=== PATIENT | female | born 1995 | race Two or more races ===

== ENCOUNTER → 2022-06-25 13:05 | Outpatient (BNVA) | payer OTHER, SELFPAY | PROVIDERS: PCP Pediatrics; Visit Provider Physician Assistant Surgical ==

== ENCOUNTER → 2022-07-03 08:22 | Outpatient (BNVA) | payer OTHER, SELFPAY | PROVIDERS: PCP Pediatrics; Visit Provider Surgery ==

== ENCOUNTER 2022-07-15 14:50 | Outpatient (REF) | payer OTHER, SELFPAY ==
[2022-07-16 16:13] LABS: H Pylori Breath Test Negative (Negative)
== END 2022-07-15 14:51 | disposition home or self-care (01) ==
LOC: HO.LNP 14:50
PROVIDERS: Surgery; PCP Pediatrics; Visit Provider Physician Assistant Surgical
DX: E66.01 Morbid (severe) obesity due to excess calories (principal)
CPT/HCPCS: 83013; 99211

== ENCOUNTER 2022-07-17 14:29 | Outpatient (REF) | payer OTHER, SELFPAY ==
--- NOTE | ~2022-07-17 | XR_ITS ---
EXAMINATION: XR CHEST CLINICAL INFORMATION: Obesity COMPARISON: None available. TECHNIQUE: 2 views of the chest were obtained. FINDINGS: No significant abnormality is noted involving the heart, lungs, mediastinum, bony thorax or soft tissues. XR/XR chest 2V IMPRESSION: Unremarkable examination.
--- NOTE | 2022-07-17 14:40 | ECG_ITS ---
Test Reason : OBESITY Blood Pressure : / mmHG Vent. Rate : 062 BPM Atrial Rate : 062 BPM P-R Int : 178 ms QRS Dur : 086 ms QT Int : 446 ms P-R-T Axes : 044 046 036 degrees QTc Int : 452 ms Normal sinus rhythm Normal ECG No previous ECGs available Referred By: Giancarlo Amador Electronically Signed By:Giovanni Valles
== END 2022-07-17 14:30 | disposition home or self-care (01) ==
LOC: HO.XRAY 14:29
PROVIDERS: Visit Provider Surgery
DX: E66.01 Morbid (severe) obesity due to excess calories (principal)
CPT/HCPCS: 71046; 93005

== ENCOUNTER 2022-07-18 10:05 | Outpatient (REF) | payer OTHER, SELFPAY ==
[2022-07-18 10:54] LABS: Basophils Percent Auto 0.6 % (0-2); Eosinophils Absolute Auto 0.1 X10*3/uL (0.0-0.4); Eosinophils Percent Auto 0.9 % (0-4); Hematocrit 38.6 % (37.0-47.0); Hemoglobin 12.8 g/dl (12.0-16.0); Imm Gran Abs Auto 0.01 X10*3/uL (0.00-0.03); Imm Gran Pct Auto 0.1 % (0.0-0.4); Lymphocytes Absolute Auto 2.1 X10*3/uL (1.2-4.9); Lymphocytes Percent Auto 29.3 % (20-40); MANUAL DIFF FLAG SCAN; Mean Corpuscular HGB Conc 33.2 g/dl (31.0-35.0); Mean Corpuscular Hemoglobin 29.4 pg (27.0-33.0); Mean Corpuscular Volume 88.7 fL (80.0-98.0); Monocytes Absolute Auto 0.5 X10*3/uL (0.1-1.2); Monocytes Percent Auto 7.2 % (2-11); Neutrophils Absolute Auto 4.3 x10*3/uL (2.0-8.3); Neutrophils Percent Auto 61.9 % (45-73); PLT CLUMP 1; Red Blood Count 4.35 X10*6/uL (4.20-5.50); Red Cell Distribution Width 13.3 % (11.0-16.0); SCAN SMEAR FLAG 1
[2022-07-18 11:10] LABS: Estimated Average Glucose 103 mg/dL; Hemoglobin A1c % 5.2 %
[2022-07-18 11:24] LABS: Platelet Count 223 X10*3/uL (160-400); SLIDE REVIEW VERIFIED
[2022-07-18 12:13] LABS: Alanine Aminotransferase 17 U/L (0-31); Alkaline Phosphatase 49 U/L (39-117); Anion Gap 14 (12-20); Aspartate Amino Transferase 15 U/L (5-31); Bilirubin Total 0.6 mg/dL (0.0-1.0); Blood Urea Nitrogen 7 mg/dL (9-16); C Reactive Protein < 0.10 mg/dL (< or = 0.50); Calcium 9.6 mg/dL (8.4-10.2); Carbon Dioxide 23 mmol/L (22-29); Chloride 109 mmol/L (96-108); Cholesterol 143 mg/dL; Estimated Glomerular Filt Rate > 60; Ferritin 50 ng/mL (10-122); Folate 12.9 ng/mL (> or = 4.0); Glucose Random 95 mg/dL (60-115); HDL Cholesterol 36 mg/dL; Iron 80 mcg/dL (30-160); LDL Cholesterol Calculated 95 mg/dl; Percent Iron Saturation 22 % (15-50); Potassium 4.1 mmol/L (3.3-5.1); Sodium 142 mmol/L (135-145); TSH reflex Free T4 0.54 uIU/mL (0.32-4.0); Total Iron Binding Capacity 358 mcg/dL (228-428); Total Protein 7.2 g/dL (6.5-8.0); Triglycerides 64 mg/dL; Unsaturated Iron Binding 278 ug/dL; Vitamin B12 775 pg/mL (200-900); Vitamin D 25-OH Total 34.6 ng/mL (>30)
[2022-07-18 12:56] LABS: Insulin 18 uU/mL (2-29)
[2022-07-21 12:39] LABS: Calcium (PTHI) 9.4 mg/dL (8.6-10.2); PTHI 24 pg/mL (16-77)
[2022-07-22 13:13] LABS: Zinc 67 mcg/dL (60-130)
[2022-07-23 10:34] LABS: Vitamin A 41 mcg/dL (38-98)
[2022-07-25 11:19] LABS: Vitamin B1 11 nmol/L (8-30)
== END 2022-07-18 10:06 | disposition home or self-care (01) ==
LOC: HO.LAB 10:05
PROVIDERS: Visit Provider Surgery
DX: E66.01 Morbid (severe) obesity due to excess calories (principal)
CPT/HCPCS: 36415; 80053; 80061; 82306; 82607; 82728; 82746; 83036; 83525; 83540; 83970; 84425; 84443; 84590; 84630; 85025; 86140

== ENCOUNTER → 2022-07-28 14:39 | Outpatient (BNVA) | payer OTHER, SELFPAY | PROVIDERS: Visit Provider Counselor Mental Health ==

== ENCOUNTER 2022-08-25 15:45 | Outpatient (AMB) | payer OTHER, SELFPAY ==
--- NOTE | 2022-08-25 15:29 | A.OFFVIS_ITS ---
Intake VS Expanded 08/25/22 15:47 Height 5 ft 6 in Weight 243 lb BMI 39.2 Intake Visit Reasons: VIDEO Initial Nutrition SWL Allergies No Known Allergies Allergy (Verified 07/03/22 11:11) HPI Nutrition Presentation Details lost 7# before coming to our program [employer] weight 254# Current weight 243# Reason for consult elevated BMI Diet Assmnt Details pt reports she is doing well with her nutrition plan. has made a lot of progress. She notes the beginning was very challenging but has now adjusted well. 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 She shares her biggest fear is failure and not completing the process. Speaks about how much her sister is her motivator. SWL online classes: completed. reviewed Previous weight loss methods attempted tried to lose weight on her own, and her 2 older sisters Dietary counseling reduction Meal frequency regular: lunch, dinner (rice, beans, chicken ) and snacks and irregular: breakfast (skipped ) Lifestyle Eating out 4 or more times/week Food frequency Dairy: daily (drank milk with all meals and through the day ), Fruit: daily, Vegetables: never, Meats/poultry/fish (protein): daily (beef, chicken , doesnt like sefood), Water: occasionally, Soda: never and Juice: never Diagnosis Nutrition problem #1 overweight/obesity As related to (etiology) #1 excess energy intake and physical inactivity As evidenced by (sign/symptom) #1 high BMI Monitoring/Goals Nutrition problem monitoring total energy intake, level of knowledge/skill, total PRO intake, total CHO intake and weight Outcome progress progressing Learning/Education Readiness to learn good Stages of change action Educational materials provided Yes Most Recent Diabetes Results: Cholesterol 143 mg/dL 07/18/22 HDL Cholesterol 36 mg/dL 07/18/22 Triglycerides 64 mg/dL 07/18/22 Creatinine 0.74 mg/dL (0.5-1.4) 07/18/22 Blood Urea Nitrogen 7 mg/dL (9-16) L 07/18/22 Sodium 142 mmol/L (135-145) 07/18/22 Potassium 4.1 mmol/L (3.3-5.1) 07/18/22 Chloride 109 mmol/L (96-108) H 07/18/22 Carbon Dioxide 23 mmol/L (22-29) 07/18/22 Calcium 9.6 mg/dL (8.4-10.2) 07/18/22 AST 15 U/L (5-31) 07/18/22 ALT 17 U/L (0-31) 07/18/22 Total Protein 7.2 g/dL (6.5-8.0) 07/18/22 Albumin 4.0 g/dL (3.5-5.0) 07/18/22 PFSH Medical History (Updated 07/28/22 @ 14:58 by Maribeth De La Cruz) Morbid obesity Surgical History (Updated 06/25/22 @ 13:23 by Tori Nicolas [facility]) No history of previous surgery Family History (Updated 06/25/22 @ 13:25 by Tori Nicolas CMA) Mother Diabetes Asthma Father Diabetes Cancer Sister No problems noted. Sister No problems noted. Son Seasonal allergies Eczema Daughter Seasonal allergies Eczema Palsy Social History (Updated 06/25/22 @ 13:23 by Tori Nicolas CMA) Alcohol intake: current Alcohol intake frequency: holidays/special occasions only Patient Tobacco Use Status: Never used Tobacco Assessment & Plan Assessment & Plan (1) Obesity (BMI 30-39.9): Code(s): E66.9 - Obesity, unspecified Patient Instructions: Patient is cleared from a nutrition standpoint for bariatric surgery. Educational requirements have been completed. Reviewed vitamin supplementation and commitment to protein shake for several months post surgery. Encouraged communication with office as needed Telehealth Telehealth Location of provider rendering services: practice address Location of patient: address on file Patient Identification confirmed using: Name, : Yes Telehealth method: voice only Patient verbally consented to treatment: Yes Patient verbally consented to billing insurance company: Yes Patient informed of any privacy concerns related to visit: Yes Minutes spent on Phone/Video with Pt.: 30 Coding Level of Care Code Nutr Indiv Intake (18263) Diagnoses Obesity (BMI 30-39.9) E66.9 Time Spent (min) 30
[2022-08-25 15:47] VITALS: BMI 39.2
== END 2022-08-25 15:53 | disposition home or self-care (01) ==
LOC: HO.HBS 15:52
PROVIDERS: Visit Provider Dietitian, Registered
DX: E66.9 Obesity, unspecified (principal)

== ENCOUNTER → 2022-08-25 15:45 | Outpatient (BNVA) | payer OTHER, SELFPAY | PROVIDERS: Visit Provider Dietitian, Registered | DX: E66.9 Obesity, unspecified (principal); Z68.39 Body mass index [BMI] 39.0-39.9, adult | CPT/HCPCS: 97802 ==

== ENCOUNTER 2022-08-27 16:00 | Outpatient (AMB) | payer OTHER, SELFPAY ==
--- NOTE | 2022-08-27 16:01 | MHC.OFFVISWM ---
Intake VS Expanded 08/27/22 16:05 Height 5 ft 6 in Weight 243 lb 6.4 oz BMI 39.3 Intake Visit Reasons: VIDEO F/U [facility] Circulation Manager Required: No Allergies No Known Allergies Allergy (Verified 07/03/22 11:11) Medication List - Last Reconciled 08/27/22 by RAZA Ramos No Known Home Meds HPI HPI Comments History of Present Illness Details 27 yo female returns to the [facility] clinic for pre-op planning Initial weight on 07/03/22 was 254.4 with a BMI of 41 Weight today is 243.4 with a BMI of 39.3 Weight loss 12 pounds or 4.7 % TBWL She states she is doing very well, she has improved energy. SHe is having 4 forks of rice 1-2 x per week. Meal plan: 2 plant-based organic ORGAIN protein shakes (ONE scoop EACH in 8oz low fat unsweetened almond milk each) at 4am-6am and 7am-9am, 3 protein bars (Zone Perfect protein bars) at 10am-12pm, 1pm-3pm and 4pm-6pm and? dinner at 7pm (8 forks of protein and 8 forks of salad/vegetables). exercise plan: 5 x per week 4 mile walk, 45 minutes, [facility] Medical History Morbid obesity Surgical History No history of previous surgery Family History Mother Diabetes Asthma Father Diabetes Cancer Sister No problems noted. Sister No problems noted. Son Seasonal allergies Eczema Daughter Seasonal allergies Eczema Palsy Social History Alcohol intake: current Alcohol intake frequency: holidays/special occasions only Patient Tobacco Use Status: Never used Tobacco Assessment & Plan Assessment & Plan (1) Obesity with body mass index (BMI) of 30.0 to 39.9: Code(s): E66.9 - Obesity, unspecified Plan: change meal plan slightly to : 2 plant-based organic ORGAIN protein shakes (ONE scoop EACH in 8oz low fat unsweetened almond milk each) at 4am-6am and 7am-9am, 2 protein bars (Zone Perfect protein bars) at pm-3pm and 4pm-6pm and? dinner at 7pm (8 forks of protein and 8 forks of salad/vegetables). Continue walking but track caloriers Consider going to the gym on off days to improve exercise potential, bike or elliptical. RTC 09/18/22 Telehealth Telehealth Location of provider rendering services: practice address Location of patient: address on file Patient Identification confirmed using: Name, : Yes Telehealth method: video Patient verbally consented to treatment: Yes Patient verbally consented to billing insurance company: Yes Patient informed of any privacy concerns related to visit: Yes Minutes spent on Phone/Video with Pt.: 15 Coding Level of Care Code Tele Est Pt Level 3 (12638) Diagnoses Obesity with body mass index (BMI) of 30.0 to 39.9 E66.9 Time Spent (min) 20
[2022-08-27 16:05] VITALS: BMI 39.3
== END 2022-08-27 16:36 | disposition home or self-care (01) ==
LOC: HO.HBS 16:35
PROVIDERS: Visit Provider Physician Assistant Surgical
DX: E66.9 Obesity, unspecified (principal); Z68.39 Body mass index [BMI] 39.0-39.9, adult
CPT/HCPCS: 99213

== ENCOUNTER → 2022-08-27 16:00 | Outpatient (BNVA) | payer OTHER, SELFPAY | PROVIDERS: Visit Provider Physician Assistant Surgical ==

== ENCOUNTER 2022-09-11 08:25 | Outpatient (REF) | payer OTHER, SELFPAY ==
--- NOTE | ~2022-09-11 | FL_ITS ---
PROCEDURE: XR FLUOROSCOPY UPPER GI WITH AIR CLINICAL INFORMATION: Morbid/severe obesity due to excess calories. COMPARISON: None available. TECHNIQUE: Routine upper GI air-contrast study was performed in upright and lying position. FINDINGS: Following oral administration of thick barium and effervescent granules there is normal propagation of bolus from the oral cavity through the pharynx into esophagus and stomach without any evidence of obstruction, narrowing or stricture. No extrinsic compression seen either. On placing patient supine and prone lying the course, caliber and peristalsis of the stomach, duodenal bulb and the sweep is normal. The mucosal pattern of the stomach, duodenal bulb and the sweep is normal. FLUOROSCOPY TIME: 1.1 minute DOSE AREA PRODUCT: 28.920 uGy-m2 (microgray-meter squared) FL/FL upper GI w air IMPRESSION: Unremarkable upper GI air-contrast study.
--- NOTE | ~2022-09-11 | US_ITS ---
EXAMINATION: US COMPLETE ABDOMEN WITH LIVER ELASTOGRAPHY CLINICAL INFORMATION: Obesity. COMPARISON: None available. TECHNIQUE: Real-time imaging of the abdominal viscera. Noninvasive ultrasound liver fibrosis assessment is performed using Chelsea ElastPQ point quantification shear wave elastography (2D-SWE) with a C5-2 MHz transducer. Multiple elastography samples are obtained. FINDINGS: PANCREAS: Head and body appear unremarkable. Tail not visualized. ABDOMINAL AORTA: The proximal, middle, and distal aortic segments are normal in caliber. INFERIOR VENA CAVA: Visualized portions are normal. LIVER: The liver demonstrates normal size, contour and echogenicity. No focal lesion or intrahepatic biliary duct dilatation appreciated. The right lobe measures 17.4 cm in length. The left lobe measures 12.3 cm in length. Portal flow is towards the liver (hepatopetal). Relative compliance of the liver measures 9.6 kPa. The findings are consistent with moderate risk of clinically significant hepatic fibrosis, Metavir F2 or some F3. GALLBLADDER: The gallbladder is physiologically distended without evidence of stones, sludge, polyps, wall thickening or pericholecystic fluid. COMMON BILE DUCT: Normal in caliber measuring 0.5 cm in diameter. RIGHT KIDNEY: No hydronephrosis. No renal calculi or focal parenchymal lesion identified. The kidney measures 10.6 cm in maximum dimension. LEFT KIDNEY: No hydronephrosis. No renal calculi or focal parenchymal lesion identified. The kidney measures 10.6 cm in maximum dimension. SPLEEN: The spleen measures 13.0 cm in maximum dimension. FREE FLUID: None. US/US abdomen comp w elastography IMPRESSION: Moderate risk of clinically significant fibrosis. Spleen upper normal in size to mildly enlarged.
== END 2022-09-11 08:26 | disposition home or self-care (01) ==
LOC: HO.US 08:25
PROVIDERS: Visit Provider Surgery
DX: E66.01 Morbid (severe) obesity due to excess calories (principal)
CPT/HCPCS: 74246; 76705; 76981

== ENCOUNTER → 2022-09-11 08:27 | Outpatient (BNV) | payer OTHER, SELFPAY | PROVIDERS: Visit Provider Radiology Diagnostic Radiology | DX: E66.09 Other obesity due to excess calories (principal); Z68.39 Body mass index [BMI] 39.0-39.9, adult | CPT/HCPCS: 74246 ==

== ENCOUNTER 2022-09-18 10:04 | Outpatient (AMB) | payer OTHER, SELFPAY ==
--- NOTE | 2022-09-18 18:23 | MHC.OFFVISWM ---
Intake VS Expanded 09/18/22 18:24 Height 5 ft 6 in Weight 234 lb 8 oz BMI 37.8 Body Fat 112.2 Body Fat Percentage 47.8 Muscle Mass 122.6 Visceral Mass 19 Water Mass 84 BMR 1,557 Intake Visit Reasons: TV Follow Up SWL Allergies No Known Allergies Allergy (Verified 07/03/22 11:11) HPI TV Follow Up SWL HPI Details Start time: 12.40pm, End time: 1pm I spent 15 minutes speaking with the patient on the phone plus an additional 5 minutes reviewing and updating records for a total of 20 minutes HPI Comments History of Present Illness Details Overall weight loss: 19.6lbs, or 7.7% TBWL Is doing 2 Orgain protein shakes (1 scoop each in 8oz almond milk), 3 Zone Perfect protein bars and a meal (8 forks of meat and 8 forks of salad or vegetables) Exercise: walking outside [facility] Medical History Morbid obesity Surgical History No history of previous surgery Family History Mother Diabetes Asthma Father Diabetes Cancer Sister No problems noted. Sister No problems noted. Son Seasonal allergies Eczema Daughter Seasonal allergies Eczema Palsy Social History Alcohol intake: current Alcohol intake frequency: holidays/special occasions only Patient Tobacco Use Status: Never used Tobacco Assessment & Plan Assessment & Plan (1) Obesity: Code(s): E66.9 - Obesity, unspecified Plan: 1. Continue same nutritional plan of 2 Orgain protein shakes (1 scoop each in 8oz almond milk), 3 Zone Perfect protein bars and a meal (8 forks of meat and 8 forks of salad or vegetables) 2. Exercise: walking outside but track calories with a goal of 300 calories per day, daily 3. Continue to send me weight measurements weekly on Fridays (2) BMI 38.0-38.9,adult: Code(s): Z68.38 - Body mass index [BMI] 38.0-38.9, adult Telehealth Telehealth Location of provider rendering services: practice address Location of patient: address on file Patient Identification confirmed using: Name, : Yes Telehealth method: voice only Patient verbally consented to treatment: Yes Patient verbally consented to billing insurance company: Yes Patient informed of any privacy concerns related to visit: Yes Minutes spent on Phone/Video with Pt.: 20 Coding Level of Care Code Tele Est Pt Level 3 (26593) Diagnoses Obesity E66.9 BMI 38.0-38.9,adult Z68.38 Time Spent (min) 20
[2022-09-18 18:24] VITALS: BMI 37.8
== END 2022-09-18 18:34 | disposition home or self-care (01) ==
LOC: HO.HBS 10:04
PROVIDERS: Visit Provider Surgery
DX: E66.9 Obesity, unspecified (principal); Z68.38 Body mass index [BMI] 38.0-38.9, adult
CPT/HCPCS: 99213

== ENCOUNTER → 2022-09-18 10:04 | Outpatient (BNVA) | payer OTHER, SELFPAY | PROVIDERS: Visit Provider Surgery ==

== ENCOUNTER 2022-09-30 10:08 | Outpatient (AMB) | payer OTHER, SELFPAY ==
--- NOTE | 2022-09-30 10:40 | A.OFFVIS_ITS ---
Intake VS Expanded 09/30/22 10:47 Height 5 ft 6 in Weight 232 lb 6 oz BMI 37.5 Body Fat 110 Body Fat Percentage 47.3 Free Fat Mass 122.6 Visceral Mass 19 Water Mass 83.9 BMR 1,586 Intake Visit Reasons: TV Pre Op LSG 10/06/22 Allergies No Known Allergies Allergy (Verified 09/30/22 10:40) Medication List - Last Reconciled 09/30/22 by Giancarlo Amador MD ondansetron 4 mg PO Q12H pantoprazole 40 mg PO DAILY polyethylene glycol 3350 (Miralax) 17 grams PO DAILY sucralfate 10 mL PO BID HPI TV Pre Op LSG 10/06/22 HPI Details Start time: 10.34am, End time: 10.54am ?I spent 15 minutes speaking with the patient on the phone plus an additional 5 minutes reviewing and updating records for a total of 20 minutes HPI Comments History of Present Illness Details Overall weight loss: 21.8lbs, or 8.57% TBWL Is doing 2 Premier protein shakes (1 scoop each in 8oz almond milk), 3 Zone Perfect protein bars and one meal (8 forks of protein and 8 forks of salad or vegetables) Exercise: walking outside for 4 miles 5 days per week PFSH Medical History Morbid obesity Surgical History No history of previous surgery Family History Mother Diabetes Asthma Father Diabetes Cancer Sister No problems noted. Sister No problems noted. Son Seasonal allergies Eczema Daughter Seasonal allergies Eczema Palsy Social History Alcohol intake: current Alcohol intake frequency: holidays/special occasions only Patient Tobacco Use Status: Never used Tobacco Assessment & Plan Assessment & Plan (1) Obesity: Code(s): E66.9 - Obesity, unspecified Plan: 1. Plan for lap sleeve gastrectomy including upper GI endoscopy. All tests has been completed and reviewed and the patient is cleared for the surgery. ?If diaphragmatic or ventral hernias are present at time of surgery, these will be repaired laparoscopically as well. Risks and complications were discussed in detail including possible conversion to an open procedure, anastomotic leak, bleeding requiring transfusion, small bowel obstruction, , DVT and pul monary embolism, cardiac, or pulmonary complications, as terminal system operator complications such as anastomotic ulcer, insufficient weight loss and vitamin deficiencies. I emphasized the importance of close follow-up, adherence to instructions and good communication. So far she has proven to be an excellent communicator and very compliant with all our directions accomplishing a great weight loss. I believe t hat she is an excellent candidate and she is ready. 2. Preop prescriptions were provided and explained the purpose of each one. Need to be purchased preop. Start Pantoprazole now as you get it from the pharmacy, 1 pill per day. Sucralfate and Zofran are for after surgery as needed. 3. Bowel prep: please do 7 packets ?of Miralax mixing each one with a an 8oz glass of water, crystal light, gatorade zero, or propel ?on 10/04/22 and the same amount on 10/05/22. Continue the protein shakes during? the bowel prep. 4. Needs to purchase 1oz medicine cups . 5. Needs to purchase Children's liquid Tylenol for postop pain control. 6. Avoid aspirin, motrin, Advil, Aleve, Ibuprofen, Naproxyn. Tylenol is OK. 7. She needs to purchase the Celebrate 4:1 protein shakes from the hospital's gift shop. 8. Will do basic preop blood work-up any day between Wednesday01/12/22 and Wednesday01/16/22 fasting for 12 hours and is scheduled to see the Anesthesiologist prior to the day of surgery. 9. Importance of adherence to postop folllow-up and recommendations was underscored and she understands that. 10. Stop food and bars as of today 09/30/22 and continue with 5 Premier powedered protein shakes (ONE scoop EACH in 8oz almond milk) at 5am-7am, 8am-10am, 11am- 1pm, 2pm-4pm and 5pm-7pm. 11. No soups, broths or V8 12. The patient's?medical?history has been reviewed and they are considered low risk for post op DVT and therefore DVT prophylaxis is not considered necessary. Travel after surgery was reviewed. The patient has not disclosed any travel plans during the first 30 days after surgery and they have been advised that within the first 30 days after surgery any bus, plane, train or car travel over 2 hours in duration is contraindicated due to the possibility of developing blood clots from immobility. Any travel, needs to include periods of ambulation of 10 minutes in duration every 2 hours.? Patient was instructed to discuss any plans for travel during this period with their bariatric surgeon.? 13. Please take at the day of surgery the following medications: NONE 14. Stop any control pills and don't use them for one month after surgery 15. Absolutely no smoking or vaping, or marijuana until the surgery and for at least the first 4 weeks. Only nicotine patches are allowed. 16. Send me weight measurements on and then on the day of surgery before you go to the hospital. 17. Avoid any steroids by mouth for any reason. Let me know if someone prescribes them to you (2) BMI 37.0-37.9, adult: Code(s): Z68.37 - Body mass index [BMI] 37.0-37.9, adult Orders: Orders Type and Screen Today E66.9 - Obesity, unspecified, Z68.37 - Body mass index [BMI] 37.0-37.9, adult Comprehensive Met. Panel Today E66.9 - Obesity, unspecified, Z68.37 - Body mass index [BMI] 37.0-37.9, adult C Reactive Protein Today E66.9 - Obesity, unspecified, Z68.37 - Body mass index [BMI] 37.0-37.9, adult Hemoglobin A1c Today E66.9 - Obesity, unspecified, Z68.37 - Body mass index [BMI] 37.0-37.9, adult Insulin Today E66.9 - Obesity, unspecified, Z68.37 - Body mass index [BMI] 37.0- 37.9, adult Lipid Panel Today E66.9 - Obesity, unspecified, Z68.37 - Body mass index [BMI] 37.0-37.9, adult TSH reflex Free T4 Today E66.9 - Obesity, unspecified, Z68.37 - Body mass index [BMI] 37.0-37.9, adult Prothrombin Time INR Today E66.9 - Obesity, unspecified, Z68.37 - Body mass index [BMI] 37.0-37.9, adult Partial Thromboplastin Time Today E66.9 - Obesity, unspecified, Z68.37 - Body mass index [BMI] 37.0-37.9, adult Complete Blood Count Auto Diff Today E66.9 - Obesity, unspecified, Z68.37 - Body mass index [BMI] 37.0-37.9, adult Medications: New pantoprazole 40 mg PO DAILY 30 tabs 2RF K21.9 - Gastro-esophageal reflux disease without esophagitis sucralfate 10 mL PO BID 400 mL 2RF K21.9 - Gastro-esophageal reflux disease without esophagitis ondansetron Only take one every 12 hours as needed if you have nausea 4 mg PO Q12H 20 tabs 0RF nausea and vomiting R11.0 - Nausea polyethylene glycol 3350 (Miralax) Mix each packet with 8oz of water, Crystal light, or Gatorade zero, or Propel and do 7 packets on 10/04/22 and another 7 packets on 10/05/22 17 grams PO DAILY 14 ea 0RF Z01.818 - Encounter for other preprocedural examination Telehealth Telehealth Location of provider rendering services: practice address Location of patient: address on file Patient Identification confirmed using: Name, : Yes Telehealth method: voice only Patient verbally consented to treatment: Yes Patient verbally consented to billing insurance company: Yes Patient informed of any privacy concerns related to visit: Yes Minutes spent on Phone/Video with Pt.: 20 Coding Level of Care Code Tele Est Pt Level 3 (96645) Diagnoses Obesity E66.9 BMI 37.0-37.9, adult Z68.37 Time Spent (min) 20
[2022-09-30 10:47] VITALS: BMI 37.5
== END 2022-09-30 10:55 | disposition home or self-care (01) ==
LOC: HO.HBS 10:08
PROVIDERS: Visit Provider Surgery
DX: E66.9 Obesity, unspecified (principal); Z68.37 Body mass index [BMI] 37.0-37.9, adult
CPT/HCPCS: 99213

== ENCOUNTER → 2022-09-30 10:08 | Outpatient (BNVA) | payer OTHER, SELFPAY | PROVIDERS: Visit Provider Surgery ==